=== PATIENT | male | born 1985 | race Caucasian/White ===

== ENCOUNTER 2024-05-07 14:40 | Emergency (ER) | payer OTHER ==
[~2024-05-07] VITALS: Ht 182.9 cm; Wt 88.5 kg
[~2024-05-07 14:40] MED LIST: AMOX500 PO; ASPI325 PO; AZIT250 PO; CLIN150 PO; CRUTCH2 USE; CRUTCH4 USE; HYDACE5 PO; HYDGUAL120 PO; NAPR500 PO; NAPR550 PO; OXYACE5T PO; PENVK250 PO; PSEU30 PO; RXNAPNA550 PO; RXOXYACE PO; RXPENVK250 PO; RXPROM25 PO; TRAM50 PO
[2024-05-07] MEDS ORDERED: NEOPOLHCSU RIGHTEAR (17:52)
== END 2024-05-07 18:11 | disposition home or self-care (01) ==
LOC: ER 14:40
DX: H60.91 Unspecified otitis externa, right ear (principal); F17.200 Nicotine dependence, unspecified, uncomplicated
CPT/HCPCS: 99282